=== PATIENT | female | born 1955 | race Caucasian/White ===

== ENCOUNTER 2017-10-01 16:28 | Emergency (ER) | payer BC ==
[~2017-10-01] VITALS: Ht 154.9 cm; Wt 73.0 kg
[~2017-10-01 16:28] MED LIST: LORA0.5T PO; NAPR-576 PO
[2017-10-01 16:48] VITALS: BP 149/79; PULSE 89; RESP 20; TEMP 97.9; O2SAT 96
--- NOTE | 2017-10-01 17:10 | PD ---
HPI Chief Complaint: Chest Pain Time Seen by Provider: 17:07 Travel History International Travel<30 days: No Contact w/Intl Traveler<30days: No Traveled to known affect area: No History of Present Illness HPI The patient comes in complaining of EPIG BURNING SENSATION ONSET SINCE around 6 AM and now currently 4 out of 10, radiates towards the left upper extremity, per patient she is not an active smoker, has not had an echo or stress test performed. Does have borderline elevated cholesterol. Patient stated that she attempted to take antacids as she normally does and it did not help or alleviate her symptoms. No aggravating factors. Timing bryant the patient has had these symptoms for now over 12-13 hours, although it is much better than it was initially. [facility] is Dr. NEWELL Patient states allergy to codeine Past medical history significant for appendectomy, left ovarian tumor removal, arthritis, occasional alcohol use and insomnia. PFSH Past Medical History Arthritis: Yes Diminished Hearing: No Insomnia: Yes Immunizations Current: No ?: Not Menopausal: Yes Past Surgical History Appendectomy: Yes Gynecologic Surgery: Yes (TUMOR REMOVED FROM WHERE LEFT OVARY SHOULD HAVE BEEN. ) Social History Alcohol Use: Yes (OCCASIONAL) Tobacco Use: No Substance Use: No Allergies-Medications (Allergen,Severity, Reaction): Coded Allergies: codeine (Unverified Allergy, Mild, VOMITING, 10/01/17) Reported Meds & Prescriptions Reported Meds & Active Scripts Active Reported Protonix (Pantoprazole Sodium) 20 Mg Tab 20 Mg PO DAILY Zantac (Ranitidine HCl) 150 Mg Tab 150 Mg PO DAILY Lorazepam 0.5 Mg Tab 0.5 Mg PO Q8H PRN Review of Systems General / Constitutional: No: Fever Eyes: No: Visual changes HENT: No: Headaches Cardiovascular: Positive: Chest Pain or Discomfort Respiratory: No: Shortness of Breath Gastrointestinal: No: Abdominal Pain Genitourinary: No: Dysuria Musculoskeletal: No: Pain Skin: No Rash Neurologic: No: Weakness Psychiatric: No: Depression Endocrine: No: Polydipsia Hematologic/Lymphatic: No: Easy Bruising Physical Exam Narrative GENERAL: SKIN: Warm and dry. HEAD: Atraumatic. Normocephalic. EYES: Pupils equal and round. No scleral icterus. No injection or drainage. ENT: No nasal bleeding or discharge. Mucous membranes pink and moist. NECK: Trachea midline. No JVD. CARDIOVASCULAR: Regular rate and rhythm. RESPIRATORY: No accessory muscle use. Clear to auscultation. Breath sounds equal bilaterally. GASTROINTESTINAL: Abdomen soft, non-tender, nondistended. MUSCULOSKELETAL: Extremities without clubbing, cyanosis, or edema. No obvious deformities. NEUROLOGICAL: Awake and alert. No obvious cranial nerve deficits. Motor grossly within normal limits. Five out of 5 muscle strength in the arms and legs. Normal speech. PSYCHIATRIC: Appropriate mood and affect; insight and judgment normal. Data Data Last Documented VS Vital Signs Date Time Temp Pulse Resp B/P (MAP) Pulse Ox O2 Delivery O2 Flow Rate FiO2 10/01/17 17:41 67 18 123/67 (85) 98 Room Air 128/75 (92) 10/01/17 16:48 97.9 Orders Orders Electrocardiogram (10/01/17 17:08) B-Type Natriuretic Peptide (10/01/17 17:08) Ckmb (Isoenzyme) Profile (10/01/17 17:08) Complete Blood Count With Diff (10/01/17 17:08) Comprehensive Metabolic Panel (10/01/17 17:08) Prothrombin Time / Inr (Pt) (10/01/17 17:08) Act Partial Throm Time (Ptt) (10/01/17 17:08) Troponin I (10/01/17 17:08) Lipase (10/01/17 17:08) Chest, Single Ap (10/01/17 17:08) Ecg Monitoring (10/01/17 17:08) Bilateral Bp Monitoring (10/01/17 17:08) Iv Access Insert/Monitor (10/01/17 17:08) Oximetry (10/01/17 17:08) Oxygen Administration (10/01/17 17:08) Sodium Chloride 0.9% Flush (Ns Flush) (10/01/17 17:15) Ct Pulmonary Angiogram (10/01/17 17:08) Iohexol 350 Inj (Omnipaque 350 Inj) (10/01/17 18:14) Ckmb (Isoenzyme) Profile (10/01/17 18:33) Troponin I (10/01/17 18:33) Labs Laboratory Tests Test 10/01/17 17:20 10/01/17 18:51 White Blood Count 5.5 TH/MM3 Red Blood Count 4.93 MIL/MM3 Hemoglobin 13.8 GM/DL Hematocrit 42.3 % Mean Corpuscular Volume 85.7 FL Mean Corpuscular Hemoglobin 27.9 PG Mean Corpuscular Hemoglobin Concent 32.5 % Red Cell Distribution Width 12.4 % Platelet Count 281 TH/MM3 Mean Platelet Volume 7.3 FL Neutrophils (%) (Auto) 61.5 % Lymphocytes (%) (Auto) 27.9 % Monocytes (%) (Auto) 7.3 % Eosinophils (%) (Auto) 2.8 % Basophils (%) (Auto) 0.5 % Neutrophils # (Auto) 3.4 TH/MM3 Lymphocytes # (Auto) 1.5 TH/MM3 Monocytes # (Auto) 0.4 TH/MM3 Eosinophils # (Auto) 0.2 TH/MM3 Basophils # (Auto) 0.0 TH/MM3 CBC Comment DIFF FINAL Differential Comment Prothrombin Time 9.9 SEC Prothromb Time International Ratio 1.0 RATIO Activated Partial Thromboplast Time 24.4 SEC Blood Urea Nitrogen 11 MG/DL Creatinine 0.70 MG/DL Random Glucose 86 MG/DL Total Protein 7.9 GM/DL Albumin 3.8 GM/DL Calcium Level 9.4 MG/DL Alkaline Phosphatase 93 U/L Aspartate Amino Transf (AST/SGOT) 20 U/L Alanine Aminotransferase (ALT/SGPT) 29 U/L Total Bilirubin 0.4 MG/DL Sodium Level 140 MEQ/L Potassium Level 3.8 MEQ/L Chloride Level 108 MEQ/L Carbon Dioxide Level 26.5 MEQ/L Anion Gap 6 MEQ/L Estimat Glomerular Filtration Rate 85 ML/MIN Total Creatine Kinase 50 U/L 76 U/L Troponin I LESS THAN 0.02 NG/ML LESS THAN 0.02 NG/ML B-Type Natriuretic Peptide 7 PG/ML Lipase 127 U/L [facility] Medical Decision Making Medical Screen Exam Complete: Yes Emergency Medical Condition: Yes Medical Record Reviewed: Yes Interpretation(s) Normal sinus rhythm, 70 was beats per minute, normal intervals, some J-point elevation noted as well as some OH depressions noted generally, suspicious for pericardial disease, will obtain a CT to evaluate and make sure there is no evidence of tamponade or large pericardial effusion Differential Diagnosis Pneumonia versus bronchitis versus pulmonary embolus versus pericardial effusion versus STEMI Narrative Course CBC shows no evidence of leukocytosis, no anemia, normal platelet count, no left shift Coagulation profile is within normal limits Electrodes are all within normal limits, normal kidney liver and pancreatic functions. Beta natruretic peptide is normal, and 2 sets of cardiac enzymes are both negative. Chest x-ray reported as normal examination by radiologist Chest CT also read as no pulmonary embolus or other acute abnormality including pericardial effusion by radiologist. Diagnosis Primary Impression: Atypical chest pain Patient Instructions: Chest Pain (GEN), General Instructions Additional Instructions: Patient is advised to follow-up with primary care physician and to have a referral to food service utility worker for further testing such as echocardiogram and stress test Disposition: 01 DISCHARGE HOME Condition: Stable Minh Raman MD Oct 01, 2017 17:10
[2017-10-01] MEDS ORDERED: ZANT150T2 PO (17:11)
[2017-10-01] MEDS ORDERED: PANT20 PO (17:11)
[2017-10-01] MEDS ORDERED: LORA0.5T PO (17:11)
[2017-10-01] MEDS ORDERED: SODIUM CHLORIDE 0.9% FLUSH 10 ML FLUSH IVF PRN (17:15)
[2017-10-01 17:23] VITALS: O2SAT 98
[2017-10-01 17:24] VITALS: BP 123/67; PULSE 73; RESP 18; O2SAT 98
[2017-10-01 17:26] LABS: AUTOMATED NEUTROPHIL # 3.4 TH/MM3 (1.8-7.7); BASOPHIL % 0.5 % (0.0-2.0); EOSINOPHIL # 0.2 TH/MM3 (0-0.4); EOSINOPHIL % 2.8 % (0.0-4.0); HEMATOCRIT 42.3 % (35.0-46.0); HEMOGLOBIN 13.8 GM/DL (11.6-15.3); LYMPH % 27.9 % (9.0-44.0); LYMPHOCYTE # 1.5 TH/MM3 (1.0-4.8); MEAN CELL VOLUME 85.7 FL (80.0-100.0); MEAN CORPUSCULAR HEMOGLOBIN 27.9 PG (27.0-34.0); MEAN CORPUSCULAR HGB CONC 32.5 % (32.0-36.0); MEAN PLATELET VOLUME 7.3 FL (7.0-11.0); MONO % 7.3 % (0.0-8.0); MONOCYTE # 0.4 TH/MM3 (0-0.9); NEUT % 61.5 % (16.0-70.0); PLATELET COUNT 281 TH/MM3 (150-450); RED BLOOD COUNT 4.93 MIL/MM3 (4.00-5.30); RED CELL DISTRIBUTION WIDTH 12.4 % (11.6-17.2); WHITE BLOOD COUNT 5.5 TH/MM3 (4.0-11.0)
--- NOTE | 2017-10-01 17:34 | RADRPT ---
EXAM DATE/TIME: 10/01/2017 17:19 [facility] COMPARISON: No previous studies available for comparison. INDICATIONS : Chest pressure. MEDICAL HISTORY : None. SURGICAL HISTORY : Breast augmentation ENCOUNTER: Initial ACUITY: 1 day PAIN SCORE: 4/10 LOCATION: Bilateral chest FINDINGS: A single view of the chest demonstrates the lungs to be symmetrically aerated without evidence of mas s, infiltrate or effusion. The cardiomediastinal contours are unremarkable. Osseous structures are intact. Peripherally calcified left breast implant CONCLUSION: Normal examination. Ian Vale MD on October 01, 2017 at 17:31 Board Certified Radiologist. This report was verified electronically.
[2017-10-01 17:36] LABS: CHLORIDE 108 MEQ/L (98-107); SODIUM (NA) 140 MEQ/L (136-145)
[2017-10-01 17:39] LABS: CALCIUM 9.4 MG/DL (8.5-10.1)
[2017-10-01 17:40] LABS: ALBUMIN 3.8 GM/DL (3.4-5.0); BICARBONATE 26.5 MEQ/L (21.0-32.0); BLOOD UREA NITROGEN 11 MG/DL (7-18); GLUCOSE,RANDOM 86 MG/DL (74-106)
[2017-10-01 17:41] VITALS: BP_SYST 123; BP_SYST 128; BP_DIAS 67; BP_DIAS 75; PULSE 67; RESP 18; O2SAT 98
[2017-10-01 17:42] LABS: PROTHROMBIN TIME - PATIENT 9.9 SEC (9.8-11.6)
[2017-10-01 17:43] LABS: ALT (GPT) 29 U/L (10-53); AST (GOT) 20 U/L (15-37); GLOMERULAR FILTRATION RATE 85 ML/MIN (>89)
[2017-10-01 17:44] LABS: TOTAL BILIRUBIN ADULT 0.4 MG/DL (0.2-1.0)
[2017-10-01 17:45] LABS: TOTAL PROTEIN 7.9 GM/DL (6.4-8.2)
[2017-10-01 17:46] LABS: ALKALINE PHOSPHATASE 93 U/L (45-117)
[2017-10-01 17:48] LABS: TROPONIN I LESS THAN 0.02 NG/ML (0.02-0.05)
[2017-10-01] MEDS ORDERED: IOHEXOL 350 MG/ML 10 ML VIAL (for RAD DIAG) IVCONTRAST ONE (18:14)
--- NOTE | 2017-10-01 18:28 | RADRPT ---
EXAM DATE/TIME: 10/01/2017 18:04 [facility] COMPARISON: No previous studies available for comparison. INDICATIONS : Substernal chest pressure with pain down left arm. IV CONTRAST: 75 cc Omnipaque 350 (iohexol) IV RADIATION DOSE: 12.43 CTDIvol (mGy) MEDICAL HISTORY : None SURGICAL HISTORY : Appendectomy. ENCOUNTER: Initial ACUITY: 1 day PAIN SCALE: 7/10 LOCATION: chest TECHNIQUE: Volumetric scanning of the chest was performed using a pulmonary embolism protocol MIP images were re constructed. Using automated exposure control and adjustment of the mA and/or kV according to patien t size, radiation dose was kept as low as reasonably achievable to obtain optimal diagnostic quality images. DICOM format image data is available electronically for review and comparison. Follow-up recommendations for detected pulmonary nodules are based at a minimum on nodule size and pa tient risk factors according to Fleischner Society Guidelines. FINDINGS: PULMONARY ARTERIES: No filling defects are seen in the pulmonary arteries through the segmental level. LUNGS: There is no consolidation or pneumothorax . No concerning pulmonary nodule is visualized. PLEURAE: There is no pleural thickening or pleural effusion. MEDIASTINUM: There is good visualization of the great vessels of the middle mediastinum. No evidence of mediastin al or hilar adenopathy/mass. MUSCULOSKELETAL: Within normal limits for patient age. MISCELLANEOUS: The visualized upper abdominal organs demonstrate no acute abnormality. Left breast implant is calcif ied and has several small intracapsular ruptures. CONCLUSION: No pulmonary embolus or other acute abnormality. Clyde Angulo MD on October 01, 2017 at 18:24 Board Certified Radiologist. This report was verified electronically.
[2017-10-01 19:16] LABS: TROPONIN I LESS THAN 0.02 NG/ML (0.02-0.05)
[2017-10-01 20:18] VITALS: BP 104/66
--- NOTE | 2017-10-01 23:29 | EKG ---
Date Performed: 10/01/2017 Time Performed: 16:49:13 PTAGE: 61 years EKG: Sinus rhythm NORMAL ECG NO PREVIOUS TRACING DOCTOR: Abraham Early Interpretating Date/Time 10/01/2017 23:28:32
== END 2017-10-01 20:26 | disposition home or self-care (01) ==
LOC: PHED 16:28
DX: R07.89 Other chest pain (principal); M19.90 Unspecified osteoarthritis, unspecified site; G47.00 Insomnia, unspecified
CPT/HCPCS: 71045; 71275; 80053; 82550; 83690; 83880; 84484; 85025; 85610; 85730; 93005; 99285; Q9967